=== PATIENT | male | born 1995 | race Two or more races ===

== ENCOUNTER 2024-10-16 11:31 | Emergency (ER) | payer OTHER ==
[~2024-10-16] VITALS: Ht 175.3 cm; Wt 79.4 kg
[2024-10-16 13:20] VITALS: BP 132/79; O2SAT 99
== END 2024-10-16 13:20 | disposition home or self-care (01) ==
LOC: ER 11:36
DX: S00.83XA Contusion of other part of head, initial encounter (principal); S16.1XXA Strain of muscle, fascia and tendon at neck level, initial encounter; W50.0XXA Accidental hit or strike by another person, initial encounter; Y93.66 Activity, soccer; Y92.322 Soccer field as the place of occurrence of the external cause; Y99.8 Other external cause status
CPT/HCPCS: 70486; A4606; A4663